=== PATIENT | female | born 2000 | race Caucasian/White ===

== ENCOUNTER 2022-05-05 16:49 | Emergency (ER) | payer MEDICAID ==
[~2022-05-05] VITALS: Ht 180.3 cm; Wt 81.6 kg
[2022-05-05 16:55] VITALS: BP_SYST 120
--- NOTE | 2022-05-05 16:55 | NUR ---
Patient triaged and placed in waiting room. VSS and patient appears in no acute distress at this time. Accompanied by SELF, awaiting available bed, and MD notified of need for MSE.
--- NOTE | 2022-05-05 17:00 | NUR ---
ER at bedside examining patient.
[2022-05-05] MEDS ORDERED: KETOROLAC TROMETHAMINE 30 MG VIAL IM ONE (20:30)
[2022-05-05 20:46] VITALS: BP_SYST 136
--- NOTE | 2022-05-05 20:46 | NUR ---
Patient given written and verbal discharge instructions and verbalizes understanding. ER MD discussed with patient the results and treatment provided. Patient in stable Patient educated on pain management and to follow up with PMD. Pain Scale 0/10. Opportunity for questions provided and answered. Medication side effect fact sheet provided.
[2022-05-05 20:52] LABS: BILIRUBIN,URINE NEGATIVE (NEGATIVE); BLOOD, URINE NEGATIVE (NEGATIVE); CLARITY/URINE SL CLOUDY (CLEAR); COLOR,URINE YELLOW (YELLOW); GLUCOSE,URINE NEGATIVE (NEGATIVE); KETONES,URINE NEGATIVE (NEGATIVE); LEUKOCYTE ESTERASE ,URINE TRACE (NEGATIVE); NITRITE, URINE NEGATIVE (NEGATIVE); PROTEIN URINE NEGATIVE (NEGATIVE); UROBILINOGEN,URINE 0.2 (0.2-1.0)
[2022-05-05 21:18] LABS: RBC,URINE 0-3 /HPF (0-3)
[2022-05-05 21:19] LABS: BACTERIA,URINE FEW /HPF (None Seen); MUCUS,URINE 1+ /LPF (None Seen); URINE AMORPHOUS URATE 2+ /HPF (None Seen); WBC,URINE 0-3 /HPF (0-3)
== END 2022-05-05 20:46 | disposition home or self-care (01) ==
LOC: SED 16:49
DX: N83.291 Other ovarian cyst, right side (principal); M79.605 Pain in left leg; R30.0 Dysuria; Z79.899 Other long term (current) drug therapy
CPT/HCPCS: 76830-TC; 76857; 81000; 81025; 99284